=== PATIENT | female | born 1970 | race African-American/Black ===

== ENCOUNTER 2020-02-28 14:51 | Emergency (ER) | payer OTHER, SELFPAY ==
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
--- NOTE | ~2020-02-28 | XR_ITS ---
EXAMINATION: XR lumbar spine 2-3V DATE: 02/28/2020 15:23 INDICATION: Low back pain TECHNIQUE: Anteroposterior and lateral views of the lumbar spine, and cone-down lateral view of the l umbosacral junction were obtained. COMPARISON: None. FINDINGS: There is no fracture, dislocation, or subluxation. The vertebral body heights are normal. T here is moderate loss of intervertebral disc space height at L5-S1. Moderate facet osteoarthritis is present in the lower lumbar spine. The bowel gas pattern is normal. Phleboliths are noted in the pelv is. IMPRESSION: 1. Moderate lower lumbar spondylosis without acute osseous abnormality. Reviewed, dictated and finalized at location A. SIGN MAKER
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
[2020-02-28 14:49] VITALS: PULSE 92; RESP 18; TEMP 37; O2SAT 100
[2020-02-28 15:41] VITALS: BP 103/63; PULSE 83; RESP 19; O2SAT 100
== END 2020-02-28 15:50 | disposition home or self-care (01) ==
PROVIDERS: Emergency Provider Emergency Medicine
DX: S39.012A Strain of muscle, fascia and tendon of lower back, initial encounter (principal); Z86.718 Personal history of other venous thrombosis and embolism; Z86.711 Personal history of pulmonary embolism; Z79.01 Long term (current) use of anticoagulants; M47.816 Spondylosis without myelopathy or radiculopathy, lumbar region; V43.12XA Car passenger injured in collision with other type car in nontraffic accident, initial encounter
CPT/HCPCS: 71046; 72100; 99284